=== PATIENT | male | born 1985 | race Caucasian/White ===

== ENCOUNTER 2016-11-13 18:43 | Emergency (ER) | payer BC ==
[~2016-11-13 18:43] MED LIST: ADDERALL XR25 MG PO; DIFLUCAN200 MG PO; DOXYCYCLINE 10100 MG PO; ILOTYCIN5 MG/GM OP; LEVAQUIN 750MG750 M1 PO; LEVEMIR FLEXPEN SQ; LEXAPRO 10MG10 MG PO; MONODOX100 PO; NORCO 325 MG-51 TAB PO; NOVOLOG FLEX100 U/ML SQ; PERCOCET 325 MG1 TA2 PO; STRIBILD PO; STRIBILD1 TAB PO; TESSALON P100 MG/CAP PO; TUSS PO; ZOFRAN ODT4 MG PO
[2016-11-13 18:45] VITALS: TEMP 97.1
[2016-11-13] MEDS ORDERED: GENVOYA TABLET1 EACH PO (18:49)
[2016-11-13 19:32] LABS: HEMATOCRIT 44.3 % (42.0-52.0); HEMOGLOBIN 15.9 g/dl (13.5-18.0); MEAN CELL VOLUME 85 fl (80.0-100.0); MEAN CORPUSCULAR HEMOGLOBIN 30 pg (27.0-31.0); MEAN CORPUSCULAR HGB CONC 36 g/dl (33.0-37.0); MEAN PLATELET VOLUME 10.8 fl (7.4-10.4); PLATELET COUNT 250 K/mm3 (130-400); RED BLOOD COUNT 5.23 M/mm3 (4.20-5.60); REDCELL DISTRIBUTION WIDTH-CV 12.4 % (11.5-14.5)
[2016-11-13 19:44] LABS: ACETONE,SERUM SMALL
[2016-11-13 19:48] LABS: ALANINE AMINOTRANSFERASE 33 U/L (21-72); ALBUMIN 3.8 gm/dL (3.5-5.0); ALKALINE PHOSPHATASE 178 U/L (50-136); ANION GAP 12 mmol/L (7-16); AST,SGOT 22 U/L (15-37); BILIRUBIN,TOTAL 0.6 mg/dL (0.0-1.0); BLOOD UREA NITROGEN 24 mg/dL (9-20); C-REACTIVE PROTEIN 5.4 mg/dL (0.0-0.9); CALCIUM 8.5 mg/dL (8.4-10.2); CARBON DIOXIDE 24 mmol/L (22-30); CHLORIDE 92 mmol/L (98-107); CREATININE, serum 0.91 mg/dL (0.66-1.25); POTASSIUM 4.6 mmol/L (3.4-5.0); SODIUM 127 mmol/L (137-145); TOTAL PROTEIN 6.7 gm/dL (6.4-8.2)
[2016-11-13 19:53] LABS: GLUCOSE 618 mg/dL (74-106)
[2016-11-13 20:07] LABS: INFLUENZA A NEGATIVE; INFLUENZA B NEGATIVE
[2016-11-13] MEDS ORDERED: ZITHROMAX 250M250 MG PO (20:31)
[2016-11-13 20:36] LABS: EOSINOPHIL 2 % (0-4); LYMPHOCYTE 10 % (20.0-51.0); NEUTROPHILS 88 % (42.0-75.2); POIKILOCYTOSIS 2+
[2016-11-13 21:56] VITALS: BP 118/70; PULSE 84
== END 2016-11-13 22:03 | disposition home or self-care (01) ==
LOC: COL.ER 18:43
PROVIDERS: Emergency Medicine
DX: E11.65 Type 2 diabetes mellitus with hyperglycemia (principal); J20.9 Acute bronchitis, unspecified; Z79.4 Long term (current) use of insulin; F17.210 Nicotine dependence, cigarettes, uncomplicated; Z21 Asymptomatic human immunodeficiency virus [HIV] infection status
CPT/HCPCS: J1815; J7030

== ENCOUNTER 2016-12-27 17:46 | Emergency (ER) | payer BC, MEDICAID ==
[~2016-12-27] VITALS: Ht 175.3 cm; Wt 63.6 kg
[~2016-12-27 17:46] MED LIST changes: +GENVOYA TABLET1 EACH PO; +ZITHROMAX 250M250 MG PO
[2016-12-27 17:47] VITALS: TEMP 98
[2016-12-27] MEDS ORDERED: TRESIBA FL200 UNIT/1 SQ (18:04)
[2016-12-27] MEDS ORDERED: TOPROL XL 25MG25 MG PO (18:05)
[2016-12-27] MEDS ORDERED: LEXAPRO 10MG10 MG PO (18:05)
[2016-12-27] MEDS ORDERED: LYRICA 150MG C150 MG PO (18:06)
[2016-12-27] MEDS ORDERED: DESYREL 50MG50 MG PO (18:06)
[2016-12-27] MEDS ORDERED: ADDERALL20 MG PO (18:06)
[2016-12-27] MEDS ORDERED: VISTARIL 2525 MG/CAP PO (18:07)
[2016-12-27] MEDS ORDERED: PRINIVIL2.5 MG PO (18:08)
[2016-12-27] MEDS ORDERED: GENVOYA TABLET1 EACH PO (18:08)
[2016-12-27 18:48] LABS: BASO # 0.1 (0.0-0.2); EOS # 0.3 (0.0-0.7); EOS % 2.6 % (0-4.0); GRAN # 6.3 (1.4-6.5); GRAN % 66.1 % (42.2-75.2); HEMATOCRIT 42.4 % (42.0-52.0); LYMPH # 2.1 (1.2-3.4); LYMPH % 21.8 % (20.0-51.0); MEAN CELL VOLUME 86 fl (80.0-100.0); MEAN CORPUSCULAR HEMOGLOBIN 30 pg (27.0-31.0); MEAN CORPUSCULAR HGB CONC 35 g/dl (33.0-37.0); MEAN PLATELET VOLUME 11.3 fl (7.4-10.4); MONO # 0.8 (0.1-0.6); MONO % 8.3 % (1.7-9.3); PLATELET COUNT 237 K/mm3 (130-400); RED BLOOD COUNT 4.93 M/mm3 (4.20-5.60); WHITE BLOOD COUNT 9.5 K/mm3 (4.8-10.8)
[2016-12-27 19:10] LABS: ALANINE AMINOTRANSFERASE 34 U/L (21-72); ALBUMIN 3.7 gm/dL (3.5-5.0); ALKALINE PHOSPHATASE 160 U/L (50-136); ANION GAP 12 mmol/L (7-16); BILIRUBIN,TOTAL 0.4 mg/dL (0.0-1.0); BLOOD UREA NITROGEN 31 mg/dL (9-20); C-REACTIVE PROTEIN 4.9 mg/dL (0.0-0.9); CALCIUM 8.8 mg/dL (8.4-10.2); CARBON DIOXIDE 25 mmol/L (22-30); CHLORIDE 92 mmol/L (98-107); CREATININE, serum 0.84 mg/dL (0.66-1.25); POTASSIUM 4.5 mmol/L (3.4-5.0); SODIUM 130 mmol/L (137-145); TOTAL PROTEIN 6.3 gm/dL (6.4-8.2)
[2016-12-27 19:18] LABS: GLUCOSE 582 mg/dL (74-106)
[2016-12-27 19:37] LABS: ACETONE,SERUM MODERATE
[2016-12-27] MEDS ORDERED: DOXYCYCLINE 10100 MG PO (20:41)
[2016-12-27 20:57] VITALS: BP 131/87; PULSE 98
== END 2016-12-27 20:57 | disposition home or self-care (01) ==
LOC: COL.ER 17:46
PROVIDERS: Nurse Practitioner
DX: L03.113 Cellulitis of right upper limb (principal); E10.9 Type 1 diabetes mellitus without complications; F41.9 Anxiety disorder, unspecified; F32.9 Major depressive disorder, single episode, unspecified; Z21 Asymptomatic human immunodeficiency virus [HIV] infection status
CPT/HCPCS: J1170; J1815; J7030

== ENCOUNTER 2017-02-22 13:43 | Emergency (ER) | payer MEDICAID ==
[~2017-02-22] VITALS: Ht 175.3 cm; Wt 63.6 kg
[~2017-02-22 13:43] MED LIST changes: +ADDERALL20 MG PO; +DESYREL 50MG50 MG PO; +LYRICA 150MG C150 MG PO; +PRINIVIL2.5 MG PO; +TOPROL XL 25MG25 MG PO; +TRESIBA FL200 UNIT/1 SQ; +VISTARIL 2525 MG/CAP PO
[2017-02-22 15:15] VITALS: TEMP 98.7
[2017-02-22 15:24] LABS: BASO # 0.1 (0.0-0.2); EOS # 0.1 (0.0-0.7); EOS % 1.4 % (0-4.0); GRAN # 6.8 (1.4-6.5); GRAN % 70.3 % (42.2-75.2); HEMATOCRIT 47.5 % (42.0-52.0); HEMOGLOBIN 17.1 g/dl (13.5-18.0); LYMPH % 21.1 % (20.0-51.0); MEAN CELL VOLUME 83 fl (80.0-100.0); MEAN CORPUSCULAR HEMOGLOBIN 30 pg (27.0-31.0); MEAN CORPUSCULAR HGB CONC 36 g/dl (33.0-37.0); MEAN PLATELET VOLUME 10.8 fl (7.4-10.4); MONO # 0.6 (0.1-0.6); PLATELET COUNT 358 K/mm3 (130-400); RED BLOOD COUNT 5.73 M/mm3 (4.20-5.60); WHITE BLOOD COUNT 9.7 K/mm3 (4.8-10.8)
[2017-02-22 15:27] LABS: COLLECTION METHOD CLEAN CATCH
[2017-02-22 15:36] LABS: ADJUSTED CALCIUM 8.4 mg/dL (8.4-10.2); ALANINE AMINOTRANSFERASE 39 U/L (21-72); ALBUMIN 4.1 gm/dL (3.5-5.0); ALKALINE PHOSPHATASE 166 U/L (50-136); ANION GAP 12 mmol/L (7-16); BILIRUBIN,TOTAL 0.5 mg/dL (0.0-1.0); BLOOD UREA NITROGEN 34 mg/dL (9-20); CALCIUM 8.5 mg/dL (8.4-10.2); CARBON DIOXIDE 25 mmol/L (22-30); CHLORIDE 90 mmol/L (98-107); CREATININE, serum 0.91 mg/dL (0.66-1.25); LIPASE 93 U/L (23-300); POTASSIUM 4.8 mmol/L (3.4-5.0); SODIUM 127 mmol/L (137-145); TOTAL PROTEIN 6.9 gm/dL (6.4-8.2)
[2017-02-22 15:36] LABS: PH 6 (5-8); SQUAMOUS EPITHELIAL None Seen /hpf; URINE APPEARANCE Clear; URINE BACTERIA None Seen /hpf; URINE BILIRUBIN Negative (NEGATIVE); URINE BLOOD Negative (NEGATIVE); URINE COLOR Straw; URINE GLUCOSE 3+ (NEGATIVE); URINE KETONE 1+ (NEGATIVE); URINE LEUKOCYTE ESTERASE Negative (NEGATIVE); URINE PROTEIN(semi-quant) Negative (NEGATIVE); URINE RBC None Seen /hpf; URINE UROBILINOGEN Negative (NEGATIVE); URINE WBC 0-2 /hpf
[2017-02-22 15:40] LABS: C-REACTIVE PROTEIN < 0.5 mg/dL (0.0-0.9); GLUCOSE 542 mg/dL (74-106)
[2017-02-22 15:50] LABS: ACETONE,SERUM NEGATIVE
[2017-02-22 15:53] LABS: AMPHETAMINE URINE NEGATIVE; BARBITURATES URINE NEGATIVE; BENZODIAZEPINES URINE NEGATIVE; BUPRENORPHINE URINE NEGATIVE; METHADONE URINE NEGATIVE; OPIATES URINE NEGATIVE; OXYCODONE URINE NEGATIVE; PHENCYCLIDINE URINE NEGATIVE; PROPOXYPHENE URINE NEGATIVE; THC CANNABINOIDS URINE NEGATIVE; TRICYCLIC ANTIDEPRESS URINE NEGATIVE
[2017-02-22 15:57] LABS: ARTERIAL BLD GAS O2 SATURATION 95.3 % (92-100); ARTERIAL BLD GAS TCO2 CT 28.2; ARTERIAL BLOOD GAS BASE EXCESS 1.4 (-2-2); ARTERIAL BLOOD GAS HCO3 26.8 meq/L (22-26); ARTERIAL BLOOD GAS PHT 7.39 C (7.35-7.45); ARTERIAL BLOOD GAS PO2 81.3 mmHg (80-100); ARTERIAL BLOOD GAS PO2T 81.3 (80-100); ARTERIAL BLOOD GAS pH 7.39 (7.35-7.45); OXYHEMOGLOBIN 94.1 %
[2017-02-22 15:58] LABS: ATS? YES
[2017-02-22 16:52] VITALS: BP 130/86; PULSE 98
== END 2017-02-22 17:13 | disposition home or self-care (01) ==
LOC: COL.ER 13:43
PROVIDERS: Emergency Medicine
DX: E10.8 Type 1 diabetes mellitus with unspecified complications (principal); F32.9 Major depressive disorder, single episode, unspecified; F90.9 Attention-deficit hyperactivity disorder, unspecified type; F17.210 Nicotine dependence, cigarettes, uncomplicated; F15.10 Other stimulant abuse, uncomplicated; Z79.4 Long term (current) use of insulin
CPT/HCPCS: J1815; J2405; J7030

== ENCOUNTER 2017-04-27 23:41 | Emergency (ER) | payer BC, MEDICAID ==
[~2017-04-27] VITALS: Ht 175.3 cm; Wt 68.2 kg
[2017-04-27 23:41] VITALS: TEMP 98.9
[2017-04-28] LABS: HEMATOCRIT 42.2 % (42.0-52.0); MEAN CELL VOLUME 85 fl (80.0-100.0); MEAN CORPUSCULAR HEMOGLOBIN 30 pg (27.0-31.0); MEAN CORPUSCULAR HGB CONC 36 g/dl (33.0-37.0); MEAN PLATELET VOLUME 9.8 fl (7.4-10.4); PLATELET COUNT 343 K/mm3 (130-400); RED BLOOD COUNT 4.94 M/mm3 (4.20-5.60); REDCELL DISTRIBUTION WIDTH-CV 13.9 % (11.5-14.5)
[2017-04-28 00:12] LABS: ALANINE AMINOTRANSFERASE 51 U/L (21-72); ALBUMIN 4.1 gm/dL (3.5-5.0); ALKALINE PHOSPHATASE 106 U/L (50-136); ANION GAP 6 mmol/L (7-16); AST,SGOT 56 U/L (15-37); BILIRUBIN,TOTAL 0.4 mg/dL (0.0-1.0); BLOOD UREA NITROGEN 26 mg/dL (9-20); CALCIUM 9.4 mg/dL (8.4-10.2); CARBON DIOXIDE 30 mmol/L (22-30); CHLORIDE 105 mmol/L (98-107); CREATINE KINASE 1195 U/L (55-170); CREATININE, serum 0.87 mg/dL (0.66-1.25); POTASSIUM 3.5 mmol/L (3.4-5.0); SODIUM 140 mmol/L (137-145); TOTAL PROTEIN 6.4 gm/dL (6.4-8.2)
[2017-04-28 00:14] LABS: BASOPHIL 2 % (0-2); EOSINOPHIL 2 % (0-4); LYMPHOCYTE 30 % (20.0-51.0); NEUTROPHILS 50 % (42.0-75.2); PLATELET ESTIMATE NORMAL (NORMAL)
[2017-04-28 00:22] LABS: ACETAMINOPHEN < 10 ug/mL (10-30); ALCOHOL(ethanol),MEDICAL < 10 mg/dL; SALICYLATE < 1.0 mg/dL
[2017-04-28 00:23] LABS: GLUCOSE 38 mg/dL (74-106)
[2017-04-28 03:57] LABS: COLLECTION METHOD CLEAN CATCH
[2017-04-28 04:09] LABS: MUCOUS Present /lpf; SQUAMOUS EPITHELIAL 0-2 /hpf; URINE BACTERIA None Seen /hpf; URINE RBC 0-2 /hpf
[2017-04-28 04:10] LABS: PH 6 (5-8); URINE APPEARANCE Clear; URINE BILIRUBIN Negative (NEGATIVE); URINE BLOOD Negative (NEGATIVE); URINE COLOR Yellow; URINE GLUCOSE 3+ (NEGATIVE); URINE KETONE 1+ (NEGATIVE); URINE LEUKOCYTE ESTERASE Negative (NEGATIVE); URINE NITRATE Negative (NEGATIVE); URINE PROTEIN(semi-quant) Negative (NEGATIVE); URINE UROBILINOGEN Negative (NEGATIVE)
[2017-04-28 04:18] LABS: TRICYCLIC ANTIDEPRESS URINE NEGATIVE
[2017-04-28 06:09] LABS: GLUCOSE,CSF 72 mg/dL (40-70); TOTAL PROTEIN,CSF 73 mg/dL (15-45)
[2017-04-28 06:20] LABS: CSF APPEARANCE CLEAR; CSF COLOR COLORLESS; CSF RBC 0 /mm3 (0-0); CSF RBC 2 /mm3 (0-0)
[2017-04-28 06:30] LABS: CSF MONONUCLEAR 100 % (70-100); CSF POLYMORPHONUCLEAR 0 % (0-6)
[2017-04-28 08:30] VITALS: BP 114/63; PULSE 104
== END 2017-04-28 09:34 | disposition other institution (70) ==
LOC: COL.ER 23:41
PROVIDERS: Emergency Medicine
DX: G04.90 Encephalitis and encephalomyelitis, unspecified (principal); E10.9 Type 1 diabetes mellitus without complications; J45.909 Unspecified asthma, uncomplicated; F17.210 Nicotine dependence, cigarettes, uncomplicated; Z21 Asymptomatic human immunodeficiency virus [HIV] infection status
CPT/HCPCS: J0133; J0744; J1815; J2060; J3370; J7030; J7040; J7042; J7050

== ENCOUNTER 2017-06-04 22:18 | Emergency (ER) | payer BC, MEDICAID ==
[~2017-06-04] VITALS: Ht 175.3 cm; Wt 61.8 kg
[2017-06-04 22:24] VITALS: TEMP 97.5
[2017-06-04] MEDS ORDERED: NORCO 325 MG-51 TAB PO (22:52)
[2017-06-04] MEDS ORDERED: DOXYCYCLINE 10100 MG PO (22:52)
[2017-06-04 22:55] VITALS: BP 125/80; PULSE 94
== END 2017-06-04 22:59 | disposition home or self-care (01) ==
LOC: COL.ER 22:18
DX: L02.512 Cutaneous abscess of left hand (principal); I10 Essential (primary) hypertension; E10.9 Type 1 diabetes mellitus without complications; F90.9 Attention-deficit hyperactivity disorder, unspecified type; F32.9 Major depressive disorder, single episode, unspecified

== ENCOUNTER 2017-08-05 12:03 | Inpatient (IN) | payer BC, MEDICAID ==
[~2017-08-05] VITALS: Ht 175.3 cm; Wt 57.1 kg
[2017-08-05] VITALS (61 sets, daily range): BP systolic 127; BP diastolic 79; PULSE 116–118; TEMP 98.1–98.7; O2SAT 98–100
[2017-08-05 12:39] LABS: BASO # 0.1 (0.0-0.2); BASO % 1.2 % (0.0-2.0); EOS % 0.2 % (0-4.0); GRAN # 8.8 (1.4-6.5); GRAN % 78.5 % (42.2-75.2); HEMATOCRIT 50.1 % (42.0-52.0); HEMOGLOBIN 17.4 g/dl (13.5-18.0); LYMPH # 1.8 (1.2-3.4); LYMPH % 16.2 % (20.0-51.0); MEAN CELL VOLUME 88 fl (80.0-100.0); MEAN CORPUSCULAR HEMOGLOBIN 31 pg (27.0-31.0); MEAN CORPUSCULAR HGB CONC 35 g/dl (33.0-37.0); MEAN PLATELET VOLUME 10.6 fl (7.4-10.4); MONO # 0.4 (0.1-0.6); MONO % 3.5 % (1.7-9.3); PLATELET COUNT 396 K/mm3 (130-400); REDCELL DISTRIBUTION WIDTH-CV 13.3 % (11.5-14.5)
[2017-08-05 12:40] LABS: INR 0.9 (0.8-3.0); PROTHROMBIN TIME 9.9 SECONDS (9.7-12.8)
[2017-08-05 13:25] LABS: ALBUMIN 4.7 gm/dL (3.5-5.0); BILIRUBIN,TOTAL 0.7 mg/dL (0.0-1.0); CALCIUM 9.9 mg/dL (8.4-10.2); CREATININE, serum 1.04 mg/dL (0.66-1.25); TOTAL PROTEIN 7.6 gm/dL (6.4-8.2)
[2017-08-05 13:26] LABS: POTASSIUM 5.8 mmol/L (3.4-5.0)
[2017-08-05 14:35] LABS: ACETONE,SERUM MODERATE
[2017-08-05 14:40] LABS: LIPASE 332 U/L (23-300)
[2017-08-05 18:56] LABS: CALCIUM 8.1 mg/dL (8.4-10.2); CREATININE, serum 0.77 mg/dL (0.66-1.25); POTASSIUM 4.5 mmol/L (3.4-5.0)
== END 2017-08-05 20:12 | disposition left against medical advice (07) | DRG 637 ==
LOC: COL.ER 12:03 → ICU 16:25
PROVIDERS: Emergency Medicine; Family Medicine
DX: E10.10 Type 1 diabetes mellitus with ketoacidosis without coma (principal); B20 Human immunodeficiency virus [HIV] disease; Z79.4 Long term (current) use of insulin; F17.210 Nicotine dependence, cigarettes, uncomplicated; Z91.14 Patient's other noncompliance with medication regimen; E86.0 Dehydration; E87.5 Hyperkalemia
CPT/HCPCS: 99222-AI; J1815; J7030

== ENCOUNTER 2018-04-15 14:30 | Emergency (ER) | payer OTHER, BC ==
[~2018-04-15] VITALS: Ht 175.3 cm; Wt 63.6 kg
[2018-04-15 14:43] VITALS: TEMP 97.8
[2018-04-15] MEDS ORDERED: PAXIL 20MG20 MG PO (15:42)
[2018-04-15 16:10] LABS: BASO # 0.1 (0.0-0.2); BASO % 1.1 % (0.0-2.0); EOS # 0.1 (0.0-0.7); GRAN # 4.3 (1.4-6.5); GRAN % 62.1 % (42.2-75.2); HEMOGLOBIN 15.7 g/dl (13.5-18.0); LYMPH # 1.9 (1.2-3.4); MEAN CELL VOLUME 82 fl (80.0-100.0); MEAN CORPUSCULAR HEMOGLOBIN 29 pg (27.0-31.0); MEAN CORPUSCULAR HGB CONC 36 g/dl (33.0-37.0); MONO # 0.5 (0.1-0.6); MONO % 7.7 % (1.7-9.3); PLATELET COUNT 244 K/mm3 (130-400); RED BLOOD COUNT 5.38 M/mm3 (4.20-5.60); REDCELL DISTRIBUTION WIDTH-CV 12.8 % (11.5-14.5)
[2018-04-15 16:16] LABS: INR 0.9 (0.8-3.0); PROTHROMBIN TIME 9.7 SECONDS (9.7-12.8)
[2018-04-15 16:19] LABS: PARTIAL THROMBOPLASTIN TIME 31.4 SECONDS (26.0-37.0)
[2018-04-15 16:22] LABS: ALANINE AMINOTRANSFERASE 29 U/L (21-72); ALKALINE PHOSPHATASE 245 U/L (50-136); ANION GAP 12 mmol/L (7-16); AST,SGOT 18 U/L (15-37); BILIRUBIN,TOTAL 0.4 mg/dL (0.0-1.0); BLOOD UREA NITROGEN 42 mg/dL (9-20); CALCIUM 8.9 mg/dL (8.4-10.2); CARBON DIOXIDE 25 mmol/L (22-30); CREATININE, serum 0.92 mg/dL (0.66-1.25); POTASSIUM 5.4 mmol/L (3.4-5.0); SODIUM 124 mmol/L (137-145); TOTAL PROTEIN 6.7 gm/dL (6.4-8.2)
[2018-04-15 17:03] LABS: CHLORIDE 87 mmol/L (98-107); GLUCOSE 876 mg/dL (74-106); TROPONIN-I < 0.012 ng/mL (0.000-0.035)
[2018-04-15 18:00] VITALS: BP 119/77; PULSE 96
== END 2018-04-15 18:00 | disposition home or self-care (01) ==
LOC: COL.ER 14:30
PROVIDERS: Family Medicine
DX: E10.65 Type 1 diabetes mellitus with hyperglycemia (principal); R07.89 Other chest pain
CPT/HCPCS: J1815; J1885; J7030

== ENCOUNTER 2018-04-22 19:10 | Emergency (ER) | payer OTHER, BC ==
[~2018-04-22] VITALS: Ht 175.3 cm; Wt 63.6 kg
[~2018-04-22 19:10] MED LIST changes: +PAXIL 20MG20 MG PO
[2018-04-22 19:14] VITALS: BP 135/88; TEMP 98.3
[2018-04-22 20:06] LABS: BASO # 0.1 (0.0-0.2); BASO % 1.4 % (0.0-2.0); EOS # 0.1 (0.0-0.7); EOS % 1.6 % (0-4.0); GRAN # 3.3 (1.4-6.5); GRAN % 57.5 % (42.2-75.2); HEMATOCRIT 45.5 % (42.0-52.0); HEMOGLOBIN 15.8 g/dl (13.5-18.0); LYMPH # 1.8 (1.2-3.4); LYMPH % 30.9 % (20.0-51.0); MEAN CELL VOLUME 84 fl (80.0-100.0); MEAN CORPUSCULAR HEMOGLOBIN 29 pg (27.0-31.0); MEAN CORPUSCULAR HGB CONC 35 g/dl (33.0-37.0); MONO # 0.5 (0.1-0.6); MONO % 8.4 % (1.7-9.3); PLATELET COUNT 327 K/mm3 (130-400); RED BLOOD COUNT 5.41 M/mm3 (4.20-5.60); REDCELL DISTRIBUTION WIDTH-CV 12.7 % (11.5-14.5)
[2018-04-22 20:20] LABS: ALANINE AMINOTRANSFERASE 16 U/L (21-72); ALKALINE PHOSPHATASE 242 U/L (50-136); ANION GAP 14 mmol/L (7-16); AST,SGOT 17 U/L (15-37); BILIRUBIN,TOTAL 0.3 mg/dL (0.0-1.0); BLOOD UREA NITROGEN 32 mg/dL (9-20); C-REACTIVE PROTEIN 0.6 mg/dL (0.0-0.9); CARBON DIOXIDE 26 mmol/L (22-30); CREATININE, serum 0.78 mg/dL (0.66-1.25); LIPASE 79 U/L (23-300); POTASSIUM 5.6 mmol/L (3.4-5.0); SODIUM 125 mmol/L (137-145); TOTAL PROTEIN 6.8 gm/dL (6.4-8.2)
[2018-04-22 20:22] LABS: CHLORIDE 86 mmol/L (98-107)
[2018-04-22 20:27] LABS: GLUCOSE 897 mg/dL (74-106)
[2018-04-22 20:36] LABS: TROPONIN-I < 0.012 ng/mL (0.000-0.035)
[2018-04-22 20:46] LABS: ACETONE,SERUM NEGATIVE
[2018-04-22 22:43] VITALS: PULSE 92
== END 2018-04-22 22:45 | disposition home or self-care (01) ==
LOC: COL.ER 19:10
PROVIDERS: Emergency Medicine
DX: S20.219A Contusion of unspecified front wall of thorax, initial encounter (principal); E11.65 Type 2 diabetes mellitus with hyperglycemia; Z79.4 Long term (current) use of insulin; V49.9XXA Car occupant (driver) (passenger) injured in unspecified traffic accident, initial encounter
CPT/HCPCS: J1815; J2405; J3010; J7030

== ENCOUNTER 2018-07-10 13:42 | Inpatient (IN) | payer BC, MEDICAID ==
[2018-07-10] VITALS (227 sets, daily range): BP systolic 122–135; BP diastolic 72–84; PULSE 122–136; TEMP 97.7; O2SAT 73–100
[~2018-07-10] VITALS: Ht 22.9 cm; Wt 63.5 kg
[2018-07-10 14:19] LABS: BASO # 0.1 (0.0-0.2); BASO % 0.3 % (0.0-2.0); GRAN # 19.6 (1.4-6.5); GRAN % 91.8 % (42.2-75.2); HEMATOCRIT 49.5 % (42.0-52.0); HEMOGLOBIN 16.7 g/dl (13.5-18.0); LYMPH # 0.8 (1.2-3.4); LYMPH % 3.9 % (20.0-51.0); MEAN CELL VOLUME 88 fl (80.0-100.0); MEAN CORPUSCULAR HEMOGLOBIN 30 pg (27.0-31.0); MEAN CORPUSCULAR HGB CONC 34 g/dl (33.0-37.0); MEAN PLATELET VOLUME 10.9 fl (7.4-10.4); MONO # 0.7 (0.1-0.6); MONO % 3.4 % (1.7-9.3); PLATELET COUNT 364 K/mm3 (130-400); RED BLOOD COUNT 5.61 M/mm3 (4.20-5.60); REDCELL DISTRIBUTION WIDTH-CV 12.9 % (11.5-14.5)
[2018-07-10 14:21] LABS: INR 0.9 (0.8-3.0); PROTHROMBIN TIME 10.6 SECONDS (9.7-12.8)
[2018-07-10 14:27] LABS: ACETONE,SERUM MODERATE; ALANINE AMINOTRANSFERASE 18 U/L (21-72); ALBUMIN 4.1 gm/dL (3.5-5.0); ALKALINE PHOSPHATASE 201 U/L (50-136); ANION GAP 33 mmol/L (7-16); AST,SGOT 17 U/L (15-37); BILIRUBIN,TOTAL 0.4 mg/dL (0.0-1.0); BLOOD UREA NITROGEN 51 mg/dL (9-20); CALCIUM 8.6 mg/dL (8.4-10.2); CHLORIDE 90 mmol/L (98-107); CREATININE, serum 1.87 (0.66-1.25); LIPASE 232 U/L (23-300); SODIUM 131 mmol/L (137-145); TOTAL PROTEIN 6.6 gm/dL (6.4-8.2)
[2018-07-10 14:29] LABS: POTASSIUM 7.6 mmol/L (3.4-5.0)
[2018-07-10 14:30] LABS: CARBON DIOXIDE 8 mmol/L (22-30)
[2018-07-10 14:37] LABS: GLUCOSE 838 mg/dL (74-106)
[2018-07-10 14:42] LABS: TROPONIN-I < 0.012 ng/mL (0.000-0.035)
[2018-07-10 14:49] LABS: COLLECTION METHOD CLEAN CATCH
[2018-07-10 15:16] LABS: HYALINE CAST >12 /lpf; MUCOUS Present /lpf; PH 5 (5-8); SQUAMOUS EPITHELIAL None Seen /hpf; URINE APPEARANCE Clear; URINE BACTERIA None Seen /hpf; URINE BILIRUBIN Negative (NEGATIVE); URINE BLOOD Negative (NEGATIVE); URINE COLOR Yellow; URINE GLUCOSE 3+ (NEGATIVE); URINE KETONE 2+ (NEGATIVE); URINE LEUKOCYTE ESTERASE Negative (NEGATIVE); URINE NITRATE Negative (NEGATIVE); URINE PROTEIN(semi-quant) Negative (NEGATIVE); URINE RBC 0-2 /hpf; URINE UROBILINOGEN Negative (NEGATIVE)
[2018-07-10 16:05] LABS: CALCIUM 8.6 mg/dL (8.4-10.2); CREATININE, serum 1.57 (0.66-1.25)
[2018-07-10 16:15] LABS: POTASSIUM 4.8 mmol/L (3.4-5.0)
[2018-07-10 17:01] LABS: MAGNESIUM 2.4 mg/dL (1.6-2.3); PHOSPHOROUS 7.8 mg/dL (2.5-4.5)
--- NOTE | 2018-07-10 17:05 | NUR ---
Report received from ER nurse, Roseanna. Pt arrived to ICU bed 5 from ER via stretcher. Pt drowsy, oriented x3. HR ST 130s on monitor. Lungs CTA with kussmaul respirations. non productive cough. Abd flat with audible bowel sounds. Pt denies any pain or nausea. Remains on insulin gtt at 5 units/hr. Pt tolerating ice chips at this time. Pt refuses to answer all questions, unable to fully complete admission B questionaire. Call light in reach.
[2018-07-10 18:06] LABS: CALCIUM 8.6 mg/dL (8.4-10.2); CREATININE, serum 1.55 (0.66-1.25); POTASSIUM 4.6 mmol/L (3.4-5.0)
--- NOTE | 2018-07-10 19:10 | NUR ---
Report given to SENTHIL Condon.
--- NOTE | 2018-07-10 20:00 | NUR ---
PT A&O X3, DENIES PAIN. PT IS IN BED RESTING.
[2018-07-10 20:08] LABS: CALCIUM 8.2 mg/dL (8.4-10.2); CREATININE, serum 1.31 (0.66-1.25); POTASSIUM 5.1 mmol/L (3.4-5.0)
[2018-07-10 22:03] LABS: CALCIUM 8.4 mg/dL (8.4-10.2); CREATININE, serum 1.16 (0.66-1.25); POTASSIUM 5.1 mmol/L (3.4-5.0)
[2018-07-10 23:59] LABS: CALCIUM 7.8 mg/dL (8.4-10.2); POTASSIUM 4.6 mmol/L (3.4-5.0)
[2018-07-11] VITALS (516 sets, daily range): BP systolic 104–130; BP diastolic 50–88; PULSE 102–114; TEMP 97.5–99.2; O2SAT 94–100
[2018-07-11 02:42] LABS: CALCIUM 7.6 mg/dL (8.4-10.2); CREATININE, serum 0.93 (0.66-1.25); POTASSIUM 3.7 mmol/L (3.4-5.0)
[2018-07-11 04:33] LABS: BASO % 0.1 % (0.0-2.0); EOS % 0.2 % (0-4.0); GRAN # 10.3 (1.4-6.5); GRAN % 75.6 % (42.2-75.2); HEMATOCRIT 37.4 % (42.0-52.0); LYMPH % 14.9 % (20.0-51.0); MEAN CELL VOLUME 84 fl (80.0-100.0); MEAN CORPUSCULAR HGB CONC 35 g/dl (33.0-37.0); MONO # 1.2 (0.1-0.6); MONO % 8.9 % (1.7-9.3); PLATELET COUNT 275 K/mm3 (130-400); RED BLOOD COUNT 4.48 M/mm3 (4.20-5.60); REDCELL DISTRIBUTION WIDTH-CV 13.1 % (11.5-14.5)
[2018-07-11 04:34] LABS: MEAN CORPUSCULAR HEMOGLOBIN 29 pg (27.0-31.0)
[2018-07-11 04:35] LABS: HEMOGLOBIN 13.2 g/dl (13.5-18.0)
[2018-07-11 04:46] LABS: CALCIUM 7.5 mg/dL (8.4-10.2); CHOLESTEROL RISK RATIO 4.3; CREATININE, serum 0.88 (0.66-1.25); POTASSIUM 3.9 mmol/L (3.4-5.0)
--- NOTE | 2018-07-11 05:00 | NUR ---
SPOKE WITH HOSPITALIST JUSTIN. INFORMED OF PT BS 222 AND DECREASED BY 4 SINCE LAST CHECK. DIRECTS TO GIVE 42U LEVEMIR NOW. PROVIDER WANTS TO CONTINUE INSULIN GTT UNTIL AFTER NEXT AM BMP, IF GAP REMAINS CLOSED, CALL PROVIDER TO INITIATE SLIDING SCALE.
[2018-07-11 06:24] LABS: CREATININE, serum 0.75 (0.66-1.25); POTASSIUM 3.3 mmol/L (3.4-5.0)
--- NOTE | 2018-07-11 07:15 | NUR ---
REPORT RECEIVED FROM IRIS NDIAYE. CARE ASSUMED.
[2018-07-11 07:57] LABS: CALCIUM 7.5 mg/dL (8.4-10.2); CREATININE, serum 0.73 (0.66-1.25); POTASSIUM 3.2 mmol/L (3.4-5.0)
[2018-07-11 09:55] LABS: CD4 CD8 Ratio 0.8 (1.00-2.90); CD4 Helper T Cell 34.2 % (29.0-59.0); CD8 Suppressor T Cells 42.6 % (18.0-36.0)
[2018-07-11 10:13] LABS: CALCIUM 7.6 mg/dL (8.4-10.2); CREATININE, serum 0.64 (0.66-1.25); POTASSIUM 3.5 mmol/L (3.4-5.0)
--- NOTE | 2018-07-11 13:28 | NUR ---
SW met with patient to discuss discharge planning. Patient lives independently at home with his family and plans to return there upon discharge. Patient's PCP is Dr Gruber and he obtains prescriptions from [facility]. Patient uses an insulin pump but no other DME is reported and patient does not use [facility] [employer]. Patient does not have a DPOA and is not interested in completing one at this time. SW does not anticipate any discharge needs.
--- NOTE | 2018-07-11 15:35 | NUR ---
REPORT CALLED TO SEBLE NDIAYE ON MEDICAL FLOOR.
--- NOTE | 2018-07-11 15:50 | NUR ---
PT TRANSPORTED VIA WHEELCHAIR TO MEDICAL ROOM 307. PT DID NOT HAVE ANY BELONGINGS TO TRANSPORT. PT IVF TRANSPORTED WITH PATIENT. PT IVF RESUMED AT NS AT 100 UPON TRANSFER. CONTACT MADE WITH SEBLE NDIAYE UPON TRANSFER.
--- NOTE | 2018-07-11 16:35 | NUR ---
PATIENT TRANSFERRED TO ROOM 307 FROM ICU [facility]. ARRIVES TO FLOOR IN ACCOMPANIED BY NURSING STAFF. A/O X4 UPON ARRIVAL. ATTITUDE CALM AND PLEASANT. ASSISTED TO BATHROOM WITH STAND BY ASSIST. GAIT STEADY. LARGE EPISODE OF DIARRHEA. SEE CHART FOR ORDER FOR CDIFF. SPECIAL CONTACT PRECAUTIONS INITIATED. REPORTS MILD ABD CRAMP BUT DENIES NAUSEA. NO OTHER C/O OF PAIN. REPORTS FEELING LIKE BLOOD GLUCOSE IS LOW. OBTAINED @ 112. PATIENT STATES "I START FEEL LOW WHEN IT IS BELOW 120". ASSISTED TO ORDER SUPPER. ICE WATER AND DIET SPRITE PROVIDED PER REQUEST. INSTRUCTED PATIENT TO CALL WHEN NEEDING TO GET UP. DENIES FURTHER NEEDS.
--- NOTE | 2018-07-11 18:38 | NUR ---
PATIENT LAYING IN BED ASLEEP AT THIS TIME.AWAKENS WHEN SPOKEN TO. FUINISHED 100% OF SUPPER. NS infusing @ 100ml/hr in left AC.
--- NOTE | 2018-07-11 18:57 | NUR ---
REPORT GIVEN TO SENTHIL BUCHANAN.
--- NOTE | 2018-07-11 19:06 | NUR ---
Report received from SENTHIL Slade. Resting in bed asleep. Call light in reach.
--- NOTE | 2018-07-11 20:34 | NUR ---
Resting in bed. Assessment complete. Lungs clear. Heart sounds normal. Bowels active x4. Pulses strong throughout. No edema noted. Denies any pain at this time. Denies needs. Call light in reach. Will monitor.
[2018-07-11 23:02] LABS: TRICYCLIC ANTIDEPRESS URINE NEGATIVE
[2018-07-12 00:22] VITALS: BP 121/66; PULSE 107; TEMP 98.6
--- NOTE | 2018-07-12 00:28 | NUR ---
Resting in bed. Denies needs. Denies pain. Call light in reach.
[2018-07-12 03:03] VITALS: BP 114/58; PULSE 106; TEMP 98.5
--- NOTE | 2018-07-12 04:01 | NUR ---
Resting in bed. denies needs. Denies pain. Call light in reach.
--- NOTE | 2018-07-12 06:06 | NUR ---
Patient had uneventful night. Reports considering leaving AMA this AM due to "just sitting around here doing nothing, I can do this at home." Patient states he will talk with his mother and let staff know. House supervisior aware. Denies other needs at this time. Call light in reach.
--- NOTE | 2018-07-12 07:02 | NUR ---
Report given to SENTHIL Slade
--- NOTE | 2018-07-12 07:45 | NUR ---
assessment complete.patient awake,a/ox3.denies pain or discomfort at this time.patient is tachycardic with rate in 100-110s.IVF infusing.IV to LFA,RFA CDI.Blood sugar 329 this morning.insulin given accordingly.Pt refused lab draws this morning.denies any diarrhea.remains on contact isolation for MRSA.no other needs voiced at this time.will continue to monitor.call light in reach
--- NOTE | 2018-07-12 08:00 | NUR ---
pt states"I want to leave AMA,bring whatever paperwork is needed,I will sign,my mom is picking me up."This nurse explained to the patient that the doctor will be rounding soon and that he could wait to see the doctor but was unsuccessful.
--- NOTE | 2018-07-12 08:00 | NUR ---
pt signed AMA paperwaork at 0748 and was picked up by his mother shortly after.IV and telemetry discontinued. notified.
== END 2018-07-12 08:25 | disposition left against medical advice (07) | DRG 639 ==
LOC: COL.ER 13:42 → ICU 14:36 → MEDICAL 07-11 16:10
PROVIDERS: Emergency Medicine; ADMIT Hospitalist
DX: E10.10 Type 1 diabetes mellitus with ketoacidosis without coma (principal); Z79.4 Long term (current) use of insulin; R00.0 Tachycardia, unspecified; Z21 Asymptomatic human immunodeficiency virus [HIV] infection status; F90.9 Attention-deficit hyperactivity disorder, unspecified type; F41.9 Anxiety disorder, unspecified; Z79.899 Other long term (current) drug therapy; F32.9 Major depressive disorder, single episode, unspecified; Z88.0 Allergy status to penicillin; Z88.8 Allergy status to other drugs, medicaments and biological substances; T38.3X6A Underdosing of insulin and oral hypoglycemic [antidiabetic] drugs, initial encounter; E87.5 Hyperkalemia; E86.0 Dehydration; F17.210 Nicotine dependence, cigarettes, uncomplicated; E10.42 Type 1 diabetes mellitus with diabetic polyneuropathy; E87.6 Hypokalemia
CPT/HCPCS: 99223-AI; 99232-AI; C9113; J0610; J1644; J1815; J3480; J7030

== ENCOUNTER 2018-07-14 17:18 | Emergency (ER) | payer BC, MEDICAID ==
[~2018-07-14] VITALS: Ht 175.3 cm; Wt 68.2 kg
[2018-07-14 17:29] VITALS: BP 134/81; TEMP 97.9
[2018-07-14 18:01] LABS: COLLECTION METHOD CLEAN CATCH
[2018-07-14 18:10] LABS: PH 7 (5-8); SQUAMOUS EPITHELIAL None Seen /hpf; URINE APPEARANCE Clear; URINE BACTERIA None Seen /hpf; URINE BILIRUBIN Negative (NEGATIVE); URINE BLOOD Negative (NEGATIVE); URINE COLOR Straw; URINE GLUCOSE 3+ (NEGATIVE); URINE KETONE Negative (NEGATIVE); URINE LEUKOCYTE ESTERASE Negative (NEGATIVE); URINE NITRATE Negative (NEGATIVE); URINE PROTEIN(semi-quant) Negative (NEGATIVE); URINE RBC 0-2 /hpf; URINE UROBILINOGEN Negative (NEGATIVE)
[2018-07-14 18:23] LABS: TRICYCLIC ANTIDEPRESS URINE NEGATIVE
[2018-07-14 19:23] LABS: BASO # 0.1 (0.0-0.2); BASO % 0.9 % (0.0-2.0); EOS # 0.2 (0.0-0.7); EOS % 4.1 % (0-4.0); GRAN # 3.7 (1.4-6.5); HEMATOCRIT 37.3 % (42.0-52.0); HEMOGLOBIN 13.1 g/dl (13.5-18.0); LYMPH # 1.4 (1.2-3.4); LYMPH % 23.3 % (20.0-51.0); MEAN CELL VOLUME 85 fl (80.0-100.0); MEAN CORPUSCULAR HEMOGLOBIN 30 pg (27.0-31.0); MEAN CORPUSCULAR HGB CONC 35 g/dl (33.0-37.0); MEAN PLATELET VOLUME 10.5 fl (7.4-10.4); MONO # 0.6 (0.1-0.6); MONO % 9.5 % (1.7-9.3); PLATELET COUNT 206 K/mm3 (130-400); RED BLOOD COUNT 4.37 M/mm3 (4.20-5.60); REDCELL DISTRIBUTION WIDTH-CV 13.2 % (11.5-14.5)
[2018-07-14 19:36] LABS: ACETONE,SERUM NEGATIVE
[2018-07-14 19:40] LABS: ALANINE AMINOTRANSFERASE 57 U/L (21-72); ALBUMIN 3.1 gm/dL (3.5-5.0); ALKALINE PHOSPHATASE 100 U/L (50-136); ANION GAP 7 mmol/L (7-16); AST,SGOT 86 U/L (15-37); BILIRUBIN,TOTAL 0.1 mg/dL (0.0-1.0); BLOOD UREA NITROGEN 17 mg/dL (9-20); C-REACTIVE PROTEIN 3.2 mg/dL (0.0-0.9); CALCIUM 8.3 mg/dL (8.4-10.2); CARBON DIOXIDE 29 mmol/L (22-30); CHLORIDE 102 mmol/L (98-107); CREATININE, serum 0.62 (0.66-1.25); GLUCOSE 208 mg/dL (74-106); LIPASE 793 U/L (23-300); POTASSIUM 4.3 mmol/L (3.4-5.0); SODIUM 138 mmol/L (137-145); TOTAL PROTEIN 5.9 gm/dL (6.4-8.2)
[2018-07-14] MEDS ORDERED: GAS RELIEF 8080 MG PO ×2 (20:29→20:58)
[2018-07-14 20:39] VITALS: PULSE 108
== END 2018-07-14 20:40 | disposition home or self-care (01) ==
LOC: COL.ER 17:18
PROVIDERS: Family Medicine
DX: K52.9 Noninfective gastroenteritis and colitis, unspecified (principal); E10.9 Type 1 diabetes mellitus without complications
CPT/HCPCS: J2405; J7030

== ENCOUNTER → 2018-09-11 | Emergency (ER) | payer BC, MEDICAID ==
[~2018-09-11] VITALS: Ht 175.3 cm; Wt 65.9 kg
[~2018-09-11] MED LIST changes: +GAS RELIEF 8080 MG PO; +PROAIR HFA0.09 MG/AC IH; +ZITHROMAX Z PA250 MG PO
[2018-09-11 21:59] VITALS: BP 107/76; PULSE 120; TEMP 97.6
== END ==
LOC: COL.ER 21:31
DX: R05 Cough (principal); R73.09 Other abnormal glucose

== ENCOUNTER 2018-09-12 13:35 | Emergency (ER) | payer BC, MEDICAID ==
[~2018-09-12] VITALS: Ht 175.3 cm; Wt 65.9 kg
[~2018-09-12 13:35] MED LIST changes: -PROAIR HFA0.09 MG/AC IH; -ZITHROMAX Z PA250 MG PO
[2018-09-12 13:52] VITALS: BP 116/67; PULSE 110; TEMP 98.8
[2018-09-12 14:22] LABS: STREP SCREEN NEGATIVE
[2018-09-12] MEDS ORDERED: PROAIR HFA0.09 MG/AC IH (14:29)
[2018-09-12] MEDS ORDERED: ZITHROMAX Z PA250 MG PO (14:29)
== END 2018-09-12 15:05 | disposition home or self-care (01) ==
LOC: COL.ER 13:35
PROVIDERS: Emergency Medicine
DX: J20.9 Acute bronchitis, unspecified (principal); J06.9 Acute upper respiratory infection, unspecified; J45.909 Unspecified asthma, uncomplicated; E10.9 Type 1 diabetes mellitus without complications; F32.9 Major depressive disorder, single episode, unspecified; F41.9 Anxiety disorder, unspecified; F17.210 Nicotine dependence, cigarettes, uncomplicated; Z21 Asymptomatic human immunodeficiency virus [HIV] infection status

== ENCOUNTER 2019-03-29 07:17 | Emergency (ER) | payer BC ==
[~2019-03-29] VITALS: Ht 175.3 cm; Wt 65.9 kg
[~2019-03-29 07:17] MED LIST changes: +PROAIR HFA0.09 MG/AC IH; +ZITHROMAX Z PA250 MG PO
[2019-03-29 08:01] VITALS: TEMP 97.6
[2019-03-29 08:29] LABS: BASO # 0.1 (0.0-0.2); BASO % 0.7 % (0.0-2.0); EOS % 0.3 % (0-4.0); GRAN % 78.5 % (42.2-75.2); HEMATOCRIT 48.6 % (42.0-52.0); HEMOGLOBIN 16.4 g/dl (13.5-18.0); LYMPH % 17.6 % (20.0-51.0); MEAN CELL VOLUME 88 fl (80.0-100.0); MEAN CORPUSCULAR HEMOGLOBIN 30 pg (27.0-31.0); MEAN CORPUSCULAR HGB CONC 34 g/dl (33.0-37.0); MEAN PLATELET VOLUME 10.8 fl (7.4-10.4); MONO # 0.3 (0.1-0.6); MONO % 2.5 % (1.7-9.3); PLATELET COUNT 341 K/mm3 (130-400); RED BLOOD COUNT 5.51 M/mm3 (4.20-5.60)
[2019-03-29] MEDS ORDERED: PAXIL 20MG20 MG PO (08:39)
[2019-03-29 08:42] LABS: ALANINE AMINOTRANSFERASE 36 U/L (21-72); ALBUMIN 4.5 gm/dL (3.5-5.0); ALKALINE PHOSPHATASE 209 U/L (50-136); ANION GAP 27 mmol/L (7-16); AST,SGOT 26 U/L (15-37); BILIRUBIN,TOTAL 0.7 mg/dL (0.0-1.0); BLOOD UREA NITROGEN 33 mg/dL (9-20); CALCIUM 8.9 mg/dL (8.4-10.2); CHLORIDE 91 mmol/L (98-107); CREATININE, serum 1.13 (0.66-1.25); POTASSIUM 5.5 mmol/L (3.4-5.0); SODIUM 131 mmol/L (137-145); TOTAL PROTEIN 7.2 gm/dL (6.4-8.2)
[2019-03-29 08:45] LABS: ACETONE,SERUM SMALL
[2019-03-29 08:49] LABS: C-REACTIVE PROTEIN < 0.5 mg/dL (0.0-0.9)
[2019-03-29 08:50] LABS: CARBON DIOXIDE 12 mmol/L (22-30); GLUCOSE 678 mg/dL (74-106)
[2019-03-29 11:45] LABS: CREATININE, serum 1.03 (0.66-1.25); POTASSIUM 5.6 mmol/L (3.4-5.0)
[2019-03-29 13:30] VITALS: BP 141/86; PULSE 98
[2019-03-29 13:42] LABS: CREATININE, serum 1.03 (0.66-1.25)
== END 2019-03-29 13:33 | disposition short-term general hospital (02) ==
LOC: COL.ER 07:17
PROVIDERS: Emergency Medicine; Physician Assistant
DX: E10.10 Type 1 diabetes mellitus with ketoacidosis without coma (principal); F32.9 Major depressive disorder, single episode, unspecified; I10 Essential (primary) hypertension; F90.9 Attention-deficit hyperactivity disorder, unspecified type; F17.210 Nicotine dependence, cigarettes, uncomplicated
CPT/HCPCS: J1815; J1885; J2405; J2765; J3480; J7030